=== PATIENT | female | born 1970 | race Caucasian/White ===

== ENCOUNTER 2024-08-21 16:17 | Emergency (ER) | payer SELFPAY ==
[~2024-08-21] VITALS: Ht 165.1 cm; Wt 55.0 kg
[~2024-08-21 16:17] MED LIST: CYCL-839; GABA300C; OXYC-589; TRAM50TA2
--- NOTE | 2024-08-21 16:41 | ED.PDOC ---
History of Present Illness HPI Comments 53-year-old female with no PMHx presents with a chief complaint of flu-like symptoms x 4 days with associated cough, chills, fatigue, congestion, and fever. Patient is afebrile in triage. Patient is sating at 98% on room air. 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 Patient has yet to test herself for any viruses. Patient reports that it is taking longer than is typical for her to recover from feeling sick. No other symptoms or modifying factors present at this time. Time Seen by MD: 16:34 Primary Care Provider: ValorieOA Reviewed Notes: Nurses Notes, Medications, Allergies Allergies: Coded Allergies: Acetaminophen (Verified Allergy, 10/09/12) Hydrocodone (Verified Allergy, 10/09/12) Uncoded Allergies: ADHESIVE TAPE (Allergy, 10/09/12) Home Meds Active Scripts Oseltamivir Phosphate (Tamiflu) 75 Mg Cap, 1 CAP PO BID, #10 CAP Prov:MAVERICK CASTILLO MD 08/21/24 Reported Medications Oxycodone Hcl (Roxicodone) 5 Mg Tab, DAILY 10/09/12 Gabapentin (Neurontin) 300 Mg Cap, DAILY 10/09/12 Tramadol Hcl (Tramadol Hcl) 50 Mg Tab, DAILY 10/09/12 Cyclobenzaprine Hcl (Cyclobenzaprine Hcl) 10 Mg Tab, DAILY 10/09/12 Information Source: Patient Mode of Arrival: Ambulatory Severity: Moderate Timing: Days Duration: Since onset Prehospital treatment: None Past Medical History PAST MEDICAL HISTORY: Denies Surgical History (Other): Cervical Fusion 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 History Family History Family History: No family hx of Heart kirt Social History Smoker: Cigarettes Alcohol: Occasionally Drugs: Denies Drug Use Lives In: Home Constitutional: reports: chills, fatigue, fever; denies: diaphoresis, malaise, sweats, weakness, others EENTM: reports: nose congestion; denies: blurred vision, double vision, ear bleeding, ear discharge, ear drainage, ear pain, ear ringing, eye pain, eye redness, hearing loss, mouth pain, mouth swelling, nasal discharge, nose bleeding, nose pain, photophobia, tearing, throat pain, throat swelling, voice changes, others Respiratory: reports: cough; denies: hemoptysis, orthopnea, SOB at rest, shor tness of breath, SOB with excertion, stridor, wheezing, others Cardiovascular: denies: chest pain, dizzy spells, diaphoresis, Dyspnea on exertion, edema, irregular heart beat, left arm pain, lightheadedness, palpitations, PND, syncope, others Gastrointestinal: denies: abdomen distended, abdominal pain, blood streaked bowels, constipated, diarrhea, dysphagia, difficulty swallowing, hematemesis, melena, nausea, poor appetite, poor fluid intake, rectal bleeding, rectal pain, vomiting, others Genitourinary: denies: abnormal vagina bleeding, burning, dyspareunia, dysuria, flank pain, frequency, hematuria, incontinence, pain, , vagina discharge, urgency, others Neurological: denies: dizziness, fainting, headache, left sided numbness, left sided weakness, numbness, paresthesia, pre-existing deficit, right sided numbness, right sided weakness, seizure, speech problems, tingling, tremors, weakness, others Musculoskeletal: denies: back pain, gout, joint pain, joint swelling, muscle pain, muscle stiffness, neck pain, others Integumetry: denies: bruises, change in color, change in hair/nails, dryness, laceration, lesions, lumps, rash, wounds, others Allergic/Immunocompromised: denies: Difficulty Healing, Frequent Infections, Hives, Itching, others Hematologic/Lymphatic: denies: anemia, blood clots, easy bleeding, easy bruising, swollen glands, others Endocrine: denies: excessive hunger, excessive sweating, excessive thirst, excessive urination, flushing, intolerance to cold, intolerance to heat, unexplained weight gain, unexplained weight loss, others Psychiatric: denies: anxiety, bipolar disorder, depression, hopeless, panic disorder, schizophrenia, sleepless, suicidal, others All Other Systems: Reviewed and Negative Physical Exam General Appearance: No Apparent Distress HEENT: Normal ENT Inspection, Pharynx Normal, TMs Normal Neck: Full Range of Motion, Non-Tender, Normal, Normal Inspection Respiratory: Chest Non-Tender, Lungs Clear, No Accessory Muscle Use, No Respiratory Distress, Normal Breath Sounds Cardiovascular: No Edema, No JVD, No Murmur, No Gallop, Normal Peripheral Pulses, Regular Rate/Rhythm Breast Exam: Deferred Gastrointestinal: No Organomegaly, Non Tender, No Pulsatile Mass, Normal Bowel Sounds, Soft Genitalia: Deferred Pelvic: Deferred Rectal: Deferred Extremities: No calf tenderness, Normal capillary refill, Normal inspection, Normal range of motion, Non-tender, No pedal edema Musculoskeletal : Apperance: Normal Neurologic: Alert, student union consultant II-XII nml as Tested, No Motor Deficits, Normal Affect, Normal Mood, No Sensory Deficits Cerebellar Function: Normal Reflexes: Normal Skin: Dry, Normal Color, Warm Lymphatic: No Adenopathy Was a procedure done? Was a procedure done?: No Differential Dx Considerations may include: Bronchitis, influenza a, influenza B X-Ray, Labs, Meds, VS Vital Signs Date Time Temp Pulse Resp B/P (MAP) Pulse Ox O2 Delivery O2 Flow Rate FiO2 08/21/24 16:36 98.1 79 16 104/61 (75) 98 Lab Test 08/21/24 17:49 Range/Units Influenza Type A Antigen Positive Negative Influenza Type B Antigen Negative Negative SARS-CoV-2 Antigen (Rapid) Negative NEGATIVE Chest X-Ray Impression: No acute cardiopulmonary disease The influenza a is positive The influenza B is negative The COVID test is negative The patient was being discharged and will follow up with the primary care doctor The patient will return to the emergency department's condition worsens The patient was being started on Tamiflu Images Reviewed?: Images reviewed and evaluated by me Time of 1ST Reevaluation: 17:04 Reevaluation 1ST: Unchanged Time of 2ND Reevaluation: 18:48 Reevaluation 2ND: Improved Patient Education/Counseling: Diagnosis, Treatment, Prognosis, Need For Follow Up Family Education/Counseling: No Family Present Departure 1 Departure Time of Disposition: 18:47 Impression: Primary Impression: Influenza A Disposition: 01 HOME / SELF CARE / HOMELESS Condition: Fair e-Prescriptions Oseltamivir Phosphate (Tamiflu) 75 Mg Cap 1 CAP PO BID, #10 CAP Prov: MAVERICK CASTILLO MD 08/21/24 Discharged With: Self Critical Care Note Critical Care Time?: No Stability Stability form required: No Heart Score Heart Score: Heart Score Response (Comments) Value History N/A 0 EKG N/A 0 Age N/A 0 Risk Factors N/A 0 Troponin N/A 0 Total 0 I personally scribed for MAVERICK CASTILLO MD ([email or web address]) on 08/21/24 at 16:41. Electronically submitted by Corey Paris ([email or web address]). I personally scribed for MAVERICK CASTILLO MD ([email or web address]) on 08/21/24 at 17:35. Electronically submitted by Corey Paris ([email or web address]). MAVERICK CASTILLO MD Aug 21, 2024 16:41
--- NOTE | 2024-08-21 16:59 | DVH ---
EXAM: XY CHEST TWO VIEWS ROUTINE CLINICAL HISTORY: cough COMPARISON: None TECHNIQUE: Frontal and lateral view of the chest was obtained FINDINGS: Lines and Tubes: None Lungs: No focal consolidation. Pleura: No effusion. No pneumothorax. Cardiomediastinal contours: Unremarkable Pulmonary vasculature: Within normal limits. Bones: No acute osseous abnormality. Fusion hardware in the cervical spine. IMPRESSION: 1. No acute cardiopulmonary disease. HS:Y
[2024-08-21 18:33] LABS: COVID19 ANTIGEN SOFIA FIA NEGATIVE (NEGATIVE)
[2024-08-21 18:39] LABS: Rapid Influenza A Positive (Negative); Rapid Influenza B Negative (Negative)
[2024-08-21] MEDS ORDERED: OSEL75CA5 PO (18:47)
[2024-08-21 18:53] VITALS: BP 103/61; PULSE 69; RESP 18; TEMP 98.6; O2SAT 99
== END 2024-08-21 18:53 | disposition home or self-care (01) ==
LOC: ER 16:17 → EEVIPCON 16:17 → ER 18:53
DX: J10.1 Influenza due to other identified influenza virus with other respiratory manifestations (principal); F17.210 Nicotine dependence, cigarettes, uncomplicated; Z88.6 Allergy status to analgesic agent; Z79.899 Other long term (current) drug therapy; Z98.890 Other specified postprocedural states; Z20.822 Contact with and (suspected) exposure to COVID-19
CPT/HCPCS: 36415; 71046; 87426; 87804